=== PATIENT | female | born 1960 | race Caucasian/White ===

== ENCOUNTER → 2024-02-02 13:32 | Outpatient (REF) | payer OTHER, SELFPAY | LOC: RCS 13:32 | PROVIDERS: ATTENDING PHYSICIAN Nurse Practitioner; FAMILY PHYSICIAN Nurse Practitioner Adult Health | DX: I48.0 Paroxysmal atrial fibrillation (principal) | CPT/HCPCS: 93017 ==

== ENCOUNTER → 2024-02-29 08:15 | Outpatient (REF) | payer OTHER, SELFPAY | LOC: DHCBC/DCA 08:15 | PROVIDERS: ATTENDING PHYSICIAN Nurse Practitioner Gerontology; FAMILY PHYSICIAN Nurse Practitioner Adult Health | DX: R06.02 Shortness of breath (principal) | CPT/HCPCS: 78452; 93017; A9500; J2785 ==

== ENCOUNTER → 2024-03-02 08:08 | Outpatient (REF) | payer OTHER, SELFPAY | LOC: HWRCS 08:08 | PROVIDERS: ATTENDING PHYSICIAN Nurse Practitioner Gerontology; FAMILY PHYSICIAN Nurse Practitioner Adult Health | DX: R06.02 Shortness of breath (principal) | CPT/HCPCS: 93306 ==

== ENCOUNTER → 2024-07-06 13:01 | Outpatient (REF) | payer OTHER, SELFPAY | LOC: HWWDC 13:01 | PROVIDERS: ATTENDING PHYSICIAN Obstetrics & Gynecology Gynecology; FAMILY PHYSICIAN Nurse Practitioner Adult Health | DX: Z12.31 Encounter for screening mammogram for malignant neoplasm of breast (principal); Z78.0 Asymptomatic menopausal state | CPT/HCPCS: 77063; 77067; 77080 ==

== ENCOUNTER → 2024-12-24 13:08 | Outpatient (REF) | payer OTHER, SELFPAY | LOC: MRI 3T 13:08 | PROVIDERS: ATTENDING PHYSICIAN Orthopaedic Surgery; FAMILY PHYSICIAN Nurse Practitioner Adult Health | DX: M25.512 Pain in left shoulder (principal) | CPT/HCPCS: 73221 ==

== ENCOUNTER 2025-03-12 13:06 | Outpatient (RCR) | payer OTHER, SELFPAY | END 2025-03-12 23:59 | disposition home or self-care (01) | LOC: RPT 13:06 | PROVIDERS: ATTENDING PHYSICIAN Physician Assistant; FAMILY PHYSICIAN Nurse Practitioner Adult Health | DX: M54.51 Vertebrogenic low back pain (principal); M47.816 Spondylosis without myelopathy or radiculopathy, lumbar region; M53.3 Sacrococcygeal disorders, not elsewhere classified | CPT/HCPCS: 97110; 97162 ==

== ENCOUNTER → 2025-03-15 13:17 | Outpatient (REF) | payer OTHER, SELFPAY | LOC: HWRAD 13:17 | PROVIDERS: ATTENDING PHYSICIAN Nurse Practitioner Adult Health; FAMILY PHYSICIAN Nurse Practitioner Adult Health | DX: J84.9 Interstitial pulmonary disease, unspecified (principal); J41.8 Mixed simple and mucopurulent chronic bronchitis | CPT/HCPCS: 71250 ==

== ENCOUNTER 2025-03-21 18:08 | Outpatient (RCR) | payer OTHER, SELFPAY | END 2025-03-21 23:59 | disposition home or self-care (01) | LOC: RPT 18:08 | PROVIDERS: ATTENDING PHYSICIAN Physician Assistant; FAMILY PHYSICIAN Nurse Practitioner Adult Health | DX: M54.51 Vertebrogenic low back pain (principal); M47.816 Spondylosis without myelopathy or radiculopathy, lumbar region; M53.3 Sacrococcygeal disorders, not elsewhere classified; Z73.6 Limitation of activities due to disability | CPT/HCPCS: 97010; 97110; 97112 ==

== ENCOUNTER → 2025-04-03 11:07 | Outpatient (REF) | payer OTHER, SELFPAY | LOC: DHSLP 11:07 | PROVIDERS: ATTENDING PHYSICIAN Internal Medicine Critical Care Medicine; FAMILY PHYSICIAN Nurse Practitioner Adult Health | DX: G47.30 Sleep apnea, unspecified (principal); R06.83 Snoring | CPT/HCPCS: 95800 ==

== ENCOUNTER → 2025-07-10 08:15 | Outpatient (REF) | payer OTHER, SELFPAY | LOC: HWWDC 08:15 | PROVIDERS: ATTENDING PHYSICIAN Nurse Practitioner Adult Health; REFERRING PHYSICIAN Obstetrics & Gynecology Gynecology | DX: Z12.31 Encounter for screening mammogram for malignant neoplasm of breast (principal) | CPT/HCPCS: 77063; 77067 ==

== ENCOUNTER 2025-08-14 06:29 | Day surgery (SDC) | payer OTHER, SELFPAY | END 2025-08-14 10:00 | disposition home or self-care (01) | LOC: GI 06:29 | PROVIDERS: ATTENDING PHYSICIAN Internal Medicine; FAMILY PHYSICIAN Nurse Practitioner Adult Health | DX: R05.3 Chronic cough (principal); K44.9 Diaphragmatic hernia without obstruction or gangrene; K31.89 Other diseases of stomach and duodenum; K29.50 Unspecified chronic gastritis without bleeding; K20.90 Esophagitis, unspecified without bleeding | CPT/HCPCS: 43239; 88305; 88342 ==